=== PATIENT | male | born 1955 | race Two or more races ===

== ENCOUNTER 2016-12-04 08:44 | Outpatient (CLI) | payer BC, OTHER ==
[~2016-12-04 08:44] MED LIST: AMLO10TA2 PO; LOSA1TAB35 PO; OMEP20TA68 PO; TAMS0.4C34 PO
[2016-12-04 09:18] LABS: BASOPHILS % (AUTO) 0.5 % (0.0-2.0); DIFF TOTAL % 100 %; EOSINOPHILS # (AUTO) 0.1 /CMM (0.0-0.7); EOSINOPHILS % (AUTO) 1.2 % (0.0-6.0); HEMATOCRIT 45 % (39-51); HEMOGLOBIN 14.9 g/dL (13.5-17.5); LYMPHOCYTES # (AUTO) 2.2 /CMM (0.8-4.8); LYMPHOCYTES % (AUTO) 30.1 % (20.0-44.0); MEAN CORPUSCULAR HEMOGLOBIN 28 PG (26.0-33.0); MEAN CORPUSCULAR HGB CONC 33 g/dl (31.0-36.0); MEAN CORPUSCULAR VOLUME 86 fL (80-96); MONOCYTES # (AUTO) 0.6 /CMM (0.1-1.30); MONOCYTES % (AUTO) 7.6 % (2.0-12.0); NEUTROPHILS # (AUTO) 4.5 /CMM (1.8-8.9); NEUTROPHILS % (AUTO) 60.6 % (43.0-81.0); PLATELET COUNT (AUTO) 243 /CMM (150-450); RED BLOOD CELL COUNT(AUTO) 5.25 MIL/uL (4.5-6.0); WHITE BLOOD COUNT (AUTO) 7.4 K/uL (4.3-11.0)
[2016-12-04 09:34] LABS: ALBUMIN 3.8 g/dL (3.4-5.0); BILIRUBIN,TOTAL 0.7 mg/dL (0.2-1.0); CALCIUM, SERUM 8.7 mg/dL (8.5-10.1); POTASSIUM 3.9 mmol/L (3.5-5.1); TOTAL PROTEIN, SERUM 7.4 g/dL (6.4-8.2)
[2016-12-04 09:36] LABS: URIC ACID 5.1 mg/dL (2.6-7.2)
[2016-12-04 10:14] LABS: ERYTHROCYTE SEDIMENTATION RATE 4 MM/HR (0-20)
== END 2016-12-04 23:59 | disposition home or self-care (01) ==
LOC: LAB 08:44
PROVIDERS: ATTEND Family Medicine
DX: I10 Essential (primary) hypertension (principal); E55.9 Vitamin D deficiency, unspecified; M24.832 Other specific joint derangements of left wrist, not elsewhere classified
CPT/HCPCS: 36415; 73130-TC; 80053-TC; 80061-TC; 82306; 84550-TC; 85025-TC; 85652-TC; 86140-TC

== ENCOUNTER 2017-05-14 08:04 | Outpatient (CLI) | payer BC, OTHER ==
[2017-05-14 09:27] LABS: BASOPHILS % (AUTO) 0.3 % (0.0-2.0); EOSINOPHILS # (AUTO) 0.1 /CMM (0.0-0.7); EOSINOPHILS % (AUTO) 1.2 % (0.0-6.0); HEMATOCRIT 45 % (39-51); HEMOGLOBIN 15.1 g/dL (13.5-17.5); LYMPHOCYTES # (AUTO) 2.4 /CMM (0.8-4.8); MEAN CORPUSCULAR HEMOGLOBIN 29 PG (26.0-33.0); MEAN CORPUSCULAR HGB CONC 34 g/dl (31.0-36.0); MEAN CORPUSCULAR VOLUME 86 fL (80-96); MONOCYTES # (AUTO) 0.6 /CMM (0.1-1.30); MONOCYTES % (AUTO) 7.5 % (2.0-12.0); NEUTROPHILS # (AUTO) 5.4 /CMM (1.8-8.9); PLATELET COUNT (AUTO) 263 /CMM (150-450); RDW COEFFICIENT OF VARIATION 14.5 (11.5-15.0); RED BLOOD CELL COUNT(AUTO) 5.23 MIL/uL (4.5-6.0); WHITE BLOOD COUNT (AUTO) 8.5 K/uL (4.3-11.0)
[2017-05-14 09:59] LABS: ALBUMIN 3.7 g/dL (3.4-5.0); BILIRUBIN,TOTAL 0.7 mg/dL (0.2-1.0); CALCIUM, SERUM 8.6 mg/dL (8.5-10.1); CREATININE 0.9 mg/dL (0.6-1.3); POTASSIUM 3.7 mmol/L (3.5-5.1); TOTAL PROTEIN, SERUM 7.2 g/dL (6.4-8.2)
[2017-05-14 10:09] LABS: THYROID STIMULATING HORMONE 2.326 uIU/mL (0.358-3.74)
[2017-05-15 08:09] LABS: T3 TOTAL 108 ng/dL (71-180)
== END 2017-05-14 23:59 | disposition home or self-care (01) ==
LOC: LAB 08:04
PROVIDERS: ATTEND Family Medicine
DX: Z51.89 Encounter for other specified aftercare (principal); I10 Essential (primary) hypertension
CPT/HCPCS: 36415; 71020-TC; 80053-TC; 80061-TC; 83735-TC; 84439-TC; 84443-TC; 84480; 85025-TC; 86803

== ENCOUNTER 2017-10-01 08:03 | Outpatient (CLI) | payer BC ==
[2017-10-01 09:25] LABS: BASOPHILS # (AUTO) 0.1 /CMM (0.0-0.2); BASOPHILS % (AUTO) 0.9 % (0.0-2.0); EOSINOPHILS # (AUTO) 0.1 /CMM (0.0-0.7); EOSINOPHILS % (AUTO) 1.1 % (0.0-6.0); HEMATOCRIT 48 % (39-51); HEMOGLOBIN 15.9 g/dL (13.5-17.5); LYMPHOCYTES % (AUTO) 24.3 % (20.0-44.0); MEAN CORPUSCULAR HEMOGLOBIN 28 PG (26.0-33.0); MEAN CORPUSCULAR HGB CONC 33 g/dl (31.0-36.0); MEAN CORPUSCULAR VOLUME 85 fL (80-96); MONOCYTES # (AUTO) 0.6 /CMM (0.1-1.30); MONOCYTES % (AUTO) 7.8 % (2.0-12.0); NEUTROPHILS # (AUTO) 5.4 /CMM (1.8-8.9); NEUTROPHILS % (AUTO) 65.9 % (43.0-81.0); PLATELET COUNT (AUTO) 277 /CMM (150-450); RDW COEFFICIENT OF VARIATION 14.2 (11.5-15.0); RED BLOOD CELL COUNT(AUTO) 5.69 MIL/uL (4.5-6.0); WHITE BLOOD COUNT (AUTO) 8.1 K/uL (4.3-11.0)
[2017-10-01 10:09] LABS: ALBUMIN 3.7 g/dL (3.4-5.0); BILIRUBIN,TOTAL 0.8 mg/dL (0.2-1.0); CREATININE 1.1 mg/dL (0.6-1.3); TOTAL PROTEIN, SERUM 7.4 g/dL (6.4-8.2)
[2017-10-01 10:13] LABS: FREE T4 (FREE THYROXINE) 0.92 ng/dL (0.76-1.46); PROSTATE SPECIFIC ANTIGEN SCR 4.86 ng/mL (0.00-4.00); THYROID STIMULATING HORMONE 2.418 uIU/mL (0.358-3.74)
== END 2017-10-01 23:59 | disposition home or self-care (01) ==
LOC: LAB 08:03
PROVIDERS: ATTEND Family Medicine
DX: R91.1 Solitary pulmonary nodule (principal); I10 Essential (primary) hypertension; N40.0 Benign prostatic hyperplasia without lower urinary tract symptoms
CPT/HCPCS: 36415; 71020-TC; 80053-TC; 80061-TC; 84153-TC; 84439-TC; 84443-TC; 85025-TC

== ENCOUNTER 2017-10-15 08:36 | Outpatient (CLI) | payer BC | END 2017-10-15 23:59 | disposition home or self-care (01) | LOC: CT 08:36 | PROVIDERS: ATTEND Family Medicine | DX: R91.1 Solitary pulmonary nodule (principal); Z87.891 Personal history of nicotine dependence | CPT/HCPCS: 71250-TC ==

== ENCOUNTER 2018-02-04 08:47 | Outpatient (CLI) | payer BC ==
[~2018-02-04 08:47] MED LIST changes: -AMLO10TA2 PO; +AMLO10TA6 PO; -LOSA1TAB35 PO; +LOSA1TAB42 PO; +OMEP20TA5 PO; -OMEP20TA68 PO
[2018-02-04 09:54] LABS: BASOPHILS % (AUTO) 0.5 % (0.0-2.0); EOSINOPHILS % (AUTO) 1.4 % (0.0-6.0); HEMATOCRIT 43 % (39-51); HEMOGLOBIN 14.6 g/dL (13.5-17.5); LYMPHOCYTES # (AUTO) 2.1 /CMM (0.8-4.8); LYMPHOCYTES % (AUTO) 27.8 % (20.0-44.0); MEAN CORPUSCULAR HGB CONC 34 g/dl (31.0-36.0); MEAN CORPUSCULAR VOLUME 87 fL (80-96); MONOCYTES # (AUTO) 0.6 /CMM (0.1-1.30); NEUTROPHILS # (AUTO) 4.7 /CMM (1.8-8.9); NEUTROPHILS % (AUTO) 62.3 % (43.0-81.0); PLATELET COUNT (AUTO) 258 /CMM (150-450); RDW COEFFICIENT OF VARIATION 14.6 (11.5-15.0); WHITE BLOOD COUNT (AUTO) 7.6 K/uL (4.3-11.0)
[2018-02-04 10:14] LABS: ALBUMIN 3.7 g/dL (3.4-5.0); BILIRUBIN,TOTAL 0.8 mg/dL (0.2-1.0); CALCIUM, SERUM 8.7 mg/dL (8.5-10.1); CREATININE 0.9 mg/dL (0.6-1.3); POTASSIUM 4.2 mmol/L (3.5-5.1); TOTAL PROTEIN, SERUM 7.5 g/dL (6.4-8.2)
[2018-02-04 10:17] LABS: APPEARANCE,URINE CLEAR (CLEAR); BILIRUBIN,URINE NEGATIVE (NEGATIVE); BLOOD, URINE NEGATIVE Ery/uL (NEGATIVE); COLOR,URINE YELLOW (YELLOW); KETONES,URINE NEGATIVE (NEGATIVE); LEUKOCYTE ESTERASE ,URINE NEGATIVE (NEGATIVE); NITRITE, URINE NEGATIVE (NEGATIVE); PROTEIN,URINE NEGATIVE (NEGATIVE); UGLUCOSE NEGATIVE (NEGATIVE); UROBILINOGEN,URINE 0.2 EU/dL (0.2)
[2018-02-04 10:23] LABS: FREE PSA 0.28 ng/mL (0.00-45); PROSTATE SPECIFIC ANTIGEN SCR 2.38 ng/mL (0.00-4.00); THYROID STIMULATING HORMONE 2.339 uIU/mL (0.358-3.74)
== END 2018-02-04 23:59 | disposition home or self-care (01) ==
LOC: LAB 08:47
PROVIDERS: ATTEND Family Medicine
DX: R91.8 Other nonspecific abnormal finding of lung field (principal); E55.9 Vitamin D deficiency, unspecified; N40.1 Benign prostatic hyperplasia with lower urinary tract symptoms; I70.0 Atherosclerosis of aorta; M47.894 Other spondylosis, thoracic region
CPT/HCPCS: 36415; 71250-TC; 80053-TC; 80061-TC; 81000-TC; 82306; 84153-TC; 84154-TC; 84403; 84439-TC; 84443-TC; 85025-TC

== ENCOUNTER 2018-02-11 08:24 | Outpatient (CLI) | payer BC | END 2018-02-11 23:59 | disposition home or self-care (01) | LOC: US 08:24 | PROVIDERS: ATTEND Family Medicine | DX: K76.89 Other specified diseases of liver (principal) | CPT/HCPCS: 76700-TC ==

== ENCOUNTER 2018-07-15 08:13 | Outpatient (CLI) | payer BC ==
[~2018-07-15 08:13] MED LIST changes: +AMLO10TA2 PO; -AMLO10TA6 PO
[2018-07-15 10:51] LABS: BASOPHILS % (AUTO) 0.5 % (0.0-2.0); EOSINOPHILS % (AUTO) 1.4 % (0.0-6.0); HEMATOCRIT 46 % (39-51); HEMOGLOBIN 14.8 g/dL (13.5-17.5); LYMPHOCYTES # (AUTO) 1.7 /CMM (0.8-4.8); LYMPHOCYTES % (AUTO) 23.2 % (20.0-44.0); MEAN CORPUSCULAR HEMOGLOBIN 28 PG (26.0-33.0); MEAN CORPUSCULAR HGB CONC 33 g/dl (31.0-36.0); MEAN CORPUSCULAR VOLUME 87 fL (80-96); MONOCYTES # (AUTO) 0.5 /CMM (0.1-1.30); MONOCYTES % (AUTO) 6.9 % (2.0-12.0); PLATELET COUNT (AUTO) 275 /CMM (150-450); RDW COEFFICIENT OF VARIATION 13.1 (11.5-15.0); RED BLOOD CELL COUNT(AUTO) 5.22 MIL/uL (4.5-6.0); WHITE BLOOD COUNT (AUTO) 7.3 K/uL (4.3-11.0)
[2018-07-15 11:25] LABS: FREE T4 (FREE THYROXINE) 0.93 ng/dL (0.76-1.46); THYROID STIMULATING HORMONE 1.559 uIU/mL (0.358-3.74)
[2018-07-15 11:56] LABS: ALBUMIN 3.8 g/dL (3.4-5.0); BILIRUBIN,TOTAL 0.6 mg/dL (0.2-1.0); CALCIUM, SERUM 8.8 mg/dL (8.5-10.1); POTASSIUM 3.9 mmol/L (3.5-5.1); TOTAL PROTEIN, SERUM 7.2 g/dL (6.4-8.2)
== END 2018-07-15 23:59 | disposition home or self-care (01) ==
LOC: LAB 08:13
PROVIDERS: ATTEND Family Medicine
DX: I10 Essential (primary) hypertension (principal); E55.9 Vitamin D deficiency, unspecified
CPT/HCPCS: 36415; 80053-TC; 80061-TC; 82652; 84439-TC; 84443-TC; 85025-TC

== ENCOUNTER 2018-08-12 10:05 | Outpatient (CLI) | payer BC ==
[~2018-08-12 10:05] MED LIST changes: -AMLO10TA2 PO; +AMLO10TA6 PO
[2018-08-12] MEDS ORDERED: GADODIAMIDE 5 MMOL/10 ML VIAL IJ ONE (14:35)
[2018-08-12] MEDS ORDERED: GADODIAMIDE 2.5 MMOL/5 ML VIAL IJ ONE (14:35)
== END 2018-08-12 23:59 | disposition home or self-care (01) ==
LOC: MRI 10:05
PROVIDERS: ATTEND Family Medicine
DX: M47.892 Other spondylosis, cervical region (principal); M48.02 Spinal stenosis, cervical region; R90.82 White matter disease, unspecified
CPT/HCPCS: 70553-TC; 72141-TC

== ENCOUNTER 2018-12-02 08:41 | Outpatient (CLI) | payer BC ==
[~2018-12-02 08:41] MED LIST changes: -AMLO10TA6 PO; +AMLO10TA7 PO
== END 2018-12-02 23:59 | disposition home or self-care (01) ==
LOC: LAB 08:41
PROVIDERS: ATTEND Family Medicine
DX: N39.0 Urinary tract infection, site not specified (principal)
CPT/HCPCS: 87086-TC; 87186-TC

== ENCOUNTER 2018-12-02 15:42 | Emergency (ER) | payer BC ==
[~2018-12-02] VITALS: Ht 167.6 cm; Wt 77.6 kg
--- NOTE | 2018-12-02 15:45 | NUR ---
PT BROUGHT SELF IN FROM DR DRIVER OFFICE S/T INCREASED WBC AND PAIN WITH URINATION. AFEBRILE. VSS
--- NOTE | 2018-12-02 15:54 | NUR ---
URINE SAMPLE COLLECTED
[2018-12-02] MEDS ORDERED: IV NS 0.9% 1,000 ML BAG IV ONE (16:00)
[2018-12-02 16:12] LABS: BASOPHILS # (AUTO) 0.1 /CMM (0.0-0.2); BASOPHILS % (AUTO) 0.6 % (0.0-2.0); EOSINOPHILS % (AUTO) 0.2 % (0.0-6.0); HEMATOCRIT 41 % (39-51); HEMOGLOBIN 13.8 g/dL (13.5-17.5); LYMPHOCYTES # (AUTO) 2.1 /CMM (0.8-4.8); LYMPHOCYTES % (AUTO) 10.5 % (20.0-44.0); MEAN CORPUSCULAR HGB CONC 34 g/dl (31.0-36.0); MEAN CORPUSCULAR VOLUME 87 fL (80-96); MONOCYTES % (AUTO) 10.3 % (2.0-12.0); NEUTROPHILS # (AUTO) 15.5 /CMM (1.8-8.9); NEUTROPHILS % (AUTO) 78.4 % (43.0-81.0); PLATELET COUNT (AUTO) 239 /CMM (150-450); WHITE BLOOD COUNT (AUTO) 19.8 K/uL (4.3-11.0)
[2018-12-02 16:14] LABS: APPEARANCE,URINE Clear (CLEAR); BILIRUBIN,URINE Negative (NEGATIVE); BLOOD, URINE Trace-intact Ery/uL (NEGATIVE); COLOR,URINE Yellow (YELLOW); KETONES,URINE Negative (NEGATIVE); LEUKOCYTE ESTERASE ,URINE Small (NEGATIVE); NITRITE, URINE Positive (NEGATIVE); PROTEIN,URINE Trace mg/dl (NEGATIVE); UGLUCOSE Negative (NEGATIVE)
[2018-12-02 16:21] LABS: BACTERIA,URINE Many /HPF (None Seen); SQUAMOUS EPITHELIAL CELL,UR Few /HPF (None Seen); WBC,URINE 81-100 /HPF (0-3)
[2018-12-02 16:22] LABS: MUCUS,URINE Few /LPF (None Seen); URINE AMORPHOUS URATE Few /HPF (None Seen)
[2018-12-02 16:23] LABS: CALCIUM, SERUM 8.5 mg/dL (8.5-10.1); CREATININE 1.1 mg/dL (0.6-1.3); POTASSIUM 3.7 mmol/L (3.5-5.1)
[2018-12-02] MEDS ORDERED: CEFTRIAXONE 1GM BAG (ER ONLY) 1 GM/50 ML PIGGYBACK IV ONE (16:30)
--- NOTE | 2018-12-02 16:31 | NUR ---
ELSIE DRIVER [phone]
[2018-12-02] MEDS ORDERED: CEFTRIAXONE 1GM BAG (ER ONLY) 50 ML IV ONE (16:52)
--- NOTE | 2018-12-02 17:47 | NUR ---
Patient discharged to home in stable condition. Written and verbal after care instructions given. Patient verbalizes understanding of instruction. RX PROVIDED AND EDUATED. TRANSLATION WITH LATVIAN
[2018-12-02 17:49] VITALS: BP 134/74
== END 2018-12-02 17:50 | disposition home or self-care (01) ==
LOC: ER 15:46
DX: N39.0 Urinary tract infection, site not specified (principal); N12 Tubulo-interstitial nephritis, not specified as acute or chronic; I10 Essential (primary) hypertension; Z98.890 Other specified postprocedural states; Z79.899 Other long term (current) drug therapy
CPT/HCPCS: 36415; 80048-TC; 81000-TC; 85025-TC; 87086-TC; 87186-TC; J0696; J7030

== ENCOUNTER 2018-12-16 10:29 | Outpatient (CLI) | payer BC ==
[2018-12-16] MEDS ORDERED: CT SWABBABLE VALVE TRANS SET 1 EA INFUS.SET MC ONE (11:18)
[2018-12-16] MEDS ORDERED: IV NS 0.9% 250 ML IV ONE (11:18)
[2018-12-16] MEDS ORDERED: IOHEXOL-300 100 ML VIAL IV ONE (11:18)
== END 2018-12-16 23:59 | disposition home or self-care (01) ==
LOC: CT 10:29
PROVIDERS: ATTEND Family Medicine
DX: N10 Acute pyelonephritis (principal); K76.89 Other specified diseases of liver; I70.0 Atherosclerosis of aorta; N40.0 Benign prostatic hyperplasia without lower urinary tract symptoms
CPT/HCPCS: 74178; 87086; J7050; Q9967; 87186-TC

== ENCOUNTER 2019-03-10 08:59 | Outpatient (CLI) | payer BC | END 2019-03-10 23:59 | disposition home or self-care (01) | LOC: MRI 08:59 | PROVIDERS: ATTEND Family Medicine | DX: M75.101 Unspecified rotator cuff tear or rupture of right shoulder, not specified as traumatic (principal); M62.111 Other rupture of muscle (nontraumatic), right shoulder; M19.011 Primary osteoarthritis, right shoulder | CPT/HCPCS: 73221-TC ==

== ENCOUNTER 2019-05-19 08:21 | Outpatient (CLI) | payer BC ==
[2019-06-03] MEDS ORDERED: RIVA10TA PO (14:39)
[2019-06-03] MEDS ORDERED: METO50TA7 PO (14:39)
== END 2019-05-19 23:59 | disposition home or self-care (01) ==
LOC: RAD 08:21
PROVIDERS: ATTEND Family Medicine
DX: M17.0 Bilateral primary osteoarthritis of knee (principal); M25.761 Osteophyte, right knee; M25.461 Effusion, right knee
CPT/HCPCS: 73562

== ENCOUNTER 2019-06-02 08:38 | Inpatient (IN) | payer BC ==
[~2019-06-02] VITALS: Ht 172.7 cm; Wt 98.4 kg
--- NOTE | 2019-06-02 08:50 | NUR ---
DR LUX AT BEDSIDE FOR EVAL.
--- NOTE | 2019-06-02 08:56 | NUR ---
SENT BY PMD FOR NEW ONSET OF A-FIB, NO SYMPTOMS. PATIENT AOx4, TO ER BED 10, HOOKED TO MONITOR, CHANGED TO GOWN, PROVIDED W WARM BLANKET, AWAITING MD HANSEN.
[2019-06-02 09:09] LABS: BASOPHILS # (AUTO) 0.1 /CMM (0.0-0.2); BASOPHILS % (AUTO) 0.8 % (0.0-2.0); EOSINOPHILS % (AUTO) 1.1 % (0.0-6.0); HEMATOCRIT 44 % (39-51); HEMOGLOBIN 15.2 g/dL (13.5-17.5); LYMPHOCYTES # (AUTO) 1.9 /CMM (0.8-4.8); LYMPHOCYTES % (AUTO) 26.5 % (20.0-44.0); MEAN CORPUSCULAR HGB CONC 34 g/dl (31.0-36.0); MEAN CORPUSCULAR VOLUME 86 fL (80-96); MONOCYTES # (AUTO) 0.6 /CMM (0.1-1.30); MONOCYTES % (AUTO) 8.1 % (2.0-12.0); NEUTROPHILS # (AUTO) 4.6 /CMM (1.8-8.9); NEUTROPHILS % (AUTO) 63.5 % (43.0-81.0); PLATELET COUNT (AUTO) 233 /CMM (150-450); RED BLOOD CELL COUNT(AUTO) 5.17 MIL/uL (4.5-6.0); WHITE BLOOD COUNT (AUTO) 7.3 K/uL (4.3-11.0)
[2019-06-02 09:17] LABS: CALCIUM, SERUM 8.5 mg/dL (8.5-10.1); CARBON DIOXIDE 26 mmol/L (21-32); CHLORIDE 105 mmol/L (98-107); CREATININE 1.1 mg/dL (0.6-1.3); GLUCOSE 119 mg/dL (74-106); POTASSIUM 3.8 mmol/L (3.5-5.1); SODIUM SERUM 141 mmol/L (136-145); UREA NITROGEN, BLOOD 14 mg/dL (7-18)
[2019-06-02 09:29] LABS: B-TYPE NATRIURETIC PEPTIDE 280 PG/ML (0-125)
[2019-06-02] MEDS ORDERED: TERA10CA4 PO (09:36)
[2019-06-02] MEDS ORDERED: ALBU8.5H8 PO (09:36)
[2019-06-02] MEDS ORDERED: FINA5TAB11 PO (09:36)
[2019-06-02] MEDS ORDERED: HEPARIN SODIUM, PORCINE 5000 UNITS/1 ML VIAL ONE (09:47)
[2019-06-02] MEDS ORDERED: ASPIRIN 325 MG TABLET ONE (09:48)
[2019-06-02] MEDS ORDERED: ASPIRIN 325 MG TABLET PO ONE (10:00)
[2019-06-02] MEDS ORDERED: HEPARIN SODIUM, PORCINE 5000 UNITS/1 ML VIAL IV ONE (10:00)
--- NOTE | 2019-06-02 10:28 | NUR ---
CALLED FOR TELE BED.
--- NOTE | 2019-06-02 11:31 | NUR ---
REPORT GIVEN TO ROBERTO CARDENAS OF TELE UNIT
[2019-06-02 12:00] VITALS: BP 145/86
--- NOTE | 2019-06-02 12:00 | NUR ---
RECEIVED PATIENT FROM ER VIA WHEELCHAIR. SENT BY PMD FOR ABN EKG. DIAGNOSIS OF [place] AFIB. PATIENT IS A/OX4, ABLE TO MAKE NEEDS KNOWN, AMBULATORY. PATIENT IS ASYMPTOMATIC. NOT IN ANY FORM OF DISTRESS, NO SOB. DENIED PAIN OR DISCOMFORT AT THIS TIME. IV ACCESS LEFT HAND GAUGE 18, INTACT AND PATENT. ON TELE, SR WITH PACs HR 88. KEPT PATIENT SAFE AND COMFORTABLE. SAFETY PRECAUTIONS OBSERVED. BED IN LOW/LOCKED POSITION, SIDERAILS UPX2, CALL LIGHT IN REACH. WILL CONTINUE TO MONITOR ACCORDINGLY.
--- NOTE | 2019-06-02 12:10 | NUR ---
ALL BELONGINGS CHECKED AND NOTED IT ON THE BELONGINGS FORM. PER PATIENT, NO OPEN WOUNDS, REFUSED BODY CHECK. PATIENT AMBULATORY. AT BEDSIDE.
[2019-06-02 12:15] VITALS: BP 145/86
[2019-06-02] MEDS: HEPARIN INFUSION/D5W 500 ML IV PRN ×3 (12:20→12:29)
--- NOTE | 2019-06-02 12:20 | NUR ---
RONALD NOTES HEPARIN DRIP: PATIENT CALCULATED AT 98KG. 1600 UNITS/HR DIVIDED BY 50 UNITS/ML/HR = 32 UNITS/ML/HR. BOLUS OF 5,000 UNITS HEPARIN GIVEN IN ER. VERIFIED WITH JULIENNE FROM PHARMACY. CALCULATION IS OK PER JULIENNE. Addendum: 06/02/19 at 1835 by ROBERTO FONSECA 32 ML/HR
[2019-06-02] MEDS ORDERED: ACETAMINOPHEN 325 MG TABLET PO PRN (13:00)
[2019-06-02] MEDS ORDERED: ZOLPIDEM TARTRATE 5 MG TABLET PO PRN (13:00)
[2019-06-02] MEDS ORDERED: HYDROCODONE/APAP 5/325MG 1 EACH TABLET PO PRN (13:00)
[2019-06-02] MEDS ORDERED: ONDANSETRON HCL/PF 4 MG/2 ML VIAL IVP PRN (13:00)
[2019-06-02] MEDS ORDERED: Z GUARD REMEDY 2 OZ OINT TP PRN (13:00)
[2019-06-02] MEDS ORDERED: MAGNESIUM HYDROXIDE 30 ML UDC PO PRN (13:00)
[2019-06-02] MEDS ORDERED: MAG HYDROX/AL HYDROX/SIMETH 30 ML UDC PO PRN (13:00)
[2019-06-02 16:00] VITALS: BP 146/87
[2019-06-02] MEDS ORDERED: ALBUTEROL FS 2.5 MG/3 ML VIAL.NEB NEB PRN (17:00)
--- NOTE | 2019-06-02 17:45 | NUR ---
CALLED LAB FOR STAT BLOOD DRAW FOR PTT
--- NOTE | 2019-06-02 18:00 | NUR ---
RN NOTES STILL AWAITING FOR LAB DRAW. CALLED LAB AGAIN TO F/U. THEY SAID PHLEBTMISTS WAS INFORMED.
--- NOTE | 2019-06-02 18:29 | NUR ---
RN NOTES STILL AWAITING FOR BLOOD DRAW. CALLED LAB AGAIN. THEY SAID OK THEY WILL CALL THE PHLEBOTOMISTS.
--- NOTE | 2019-06-02 18:31 | NUR ---
RONALD NOTES NO RESULT ON COAGULATION STUDIES YET. Addendum: 06/02/19 at 183 by ROBERTO FONSECA AWAITING FOR PTT FOR 1819
--- NOTE | 2019-06-02 19:10 | NUR ---
RN CLOSING NOTES PATIENT IN STABLE CONDITION. ALL NEEDS ATTENDED AND PROVIDED. ALL DUE MEDICATIONS GIVEN ORDERED. ASSISTED WITH ADLS. HEPARIN DRIP INFUSING 32ML/HR. PTT STILL PENDING. KEPT PATIENT SAFE AND COMFORTABLE. BED IN LOW/LOCKED POSITION. CALL LIGHT IN REACH. ENDORSED TO NIGHT RN FOR PAULY.
--- NOTE | 2019-06-02 19:10 | NUR ---
TELE/RN OPENING NOTES PT RECEIVED AWAKE WITH FAMILY AT BEDSIDE. PT A/OX3. ON ROOM AIR, BREATHING EVEN AND UNLABORED. DENIES SOB AND PAIN AT THIS TIME. HOB ELEVATED. ON TELE MONITOR SHOWING SR 67. IV TO LEFT HAND RUNNING HEPARIN DRIP AT 1600 UNITS/HR (32ML/HR). NO SIGNS OF BLEEDING NOTED. AWAITING PTT RESULT. NO NEEDS EXPRESSED AT THIS TIME. BED IN LOW/LOCKED POSITION WITH CALL LIGHT IN REACH. BILAT. UPPER SIDE RAILS IN PLACE. WILL CONTINUE TO MONITOR
--- NOTE | 2019-06-02 19:30 | NUR ---
TELE/RN NOTES LAB CALLED WITH PTT RESULT 88.6 READBACK FOR VERIFICATION. WILL TITRATE HEPARIN DRIP PER PROTOCOL
[2019-06-02 20:00] VITALS: BP 140/82
--- NOTE | 2019-06-02 20:20 | NUR ---
TELE/RN NOTES DECREASED HEPARIN DRIP BY 200 UNITS/HR PER PROTOCOL. HEPARIN DRIP RUNNING AT 1400 UNITS/HR (28ML/HR). REVIEWED WITH RN NIGHT, ADJUSTMENT WRITTEN ON [facility] ORDER SHEET AND FAXED TO PHARMACY. PT AND FAMILY UPDATED
[2019-06-02] MEDS ORDERED: TERAZOSIN HCL 5 MG CAPSULE PO SCH (22:00)
[2019-06-03] VITALS: BP 120/70
--- NOTE | 2019-06-03 02:47 | NUR ---
TELE/RN NOTES PTT= 92.3 HEPARIN DRIP PUT ON HOLD FOR 1 HOUR PER PROTOCOL. THEN WILL DECREASE DRIP BY 3UNIT/KG/HR (250 UNITS/HR). WILL ORDER FOR ANOTHER PTT IN 6 HOURS.
--- NOTE | 2019-06-03 03:48 | NUR ---
TELE/RN NOTES HEPARIN DRIP RESUMED WITH A NEW DRIP RATE OF 1,150 UNITS/HR (23ML/HR) PTT ORDERED FOR 0845
[2019-06-03 04:00] VITALS: BP 136/79
[2019-06-03 06:39] LABS: BASOPHILS # (AUTO) 0.1 /CMM (0.0-0.2); BASOPHILS % (AUTO) 0.7 % (0.0-2.0); EOSINOPHILS % (AUTO) 2.3 % (0.0-6.0); HEMATOCRIT 41 % (39-51); HEMOGLOBIN 14.1 g/dL (13.5-17.5); LYMPHOCYTES # (AUTO) 2.1 /CMM (0.8-4.8); LYMPHOCYTES % (AUTO) 29.2 % (20.0-44.0); MEAN CORPUSCULAR HGB CONC 34 g/dl (31.0-36.0); MEAN CORPUSCULAR VOLUME 86 fL (80-96); MONOCYTES # (AUTO) 0.6 /CMM (0.1-1.30); MONOCYTES % (AUTO) 8.7 % (2.0-12.0); NEUTROPHILS # (AUTO) 4.2 /CMM (1.8-8.9); NEUTROPHILS % (AUTO) 59.1 % (43.0-81.0); PLATELET COUNT (AUTO) 220 /CMM (150-450); RED BLOOD CELL COUNT(AUTO) 4.79 MIL/uL (4.5-6.0)
[2019-06-03 07:07] LABS: ALBUMIN 3.3 g/dL (3.4-5.0); CALCIUM, SERUM 8.4 mg/dL (8.5-10.1); CREATININE 1.1 mg/dL (0.6-1.3); MAGNESIUM 1.9 mg/dL (1.8-2.4); PHOSPHORUS 4.1 mg/dL (2.5-4.9); POTASSIUM 3.9 mmol/L (3.5-5.1); TOTAL PROTEIN, SERUM 6.6 g/dL (6.4-8.2)
[2019-06-03] MEDS: HEPARIN INFUSION/D5W 500 ML IV PRN (07:15)
[2019-06-03] MEDS ORDERED: PANTOPRAZOLE 40 MG TABLET.DR PO SCH (07:30)
--- NOTE | 2019-06-03 07:43 | NUR ---
TELE/RN CLOSING NOTES PT AWAKE, AT BEDSIDE. A/OX3. REMAINS ON ROOM AIR, BREATHING EVEN AND UNLABORED. DENIES SOB AND PAIN AT THIS TIME. LEFT HAND PIV PATENT AND INTACT RUNNING HEPARIN DRIP AT 1,150 UNITS/HR (23ML/HR). NEXT PTT DUE AT 0845. NO BLEEDING NOTED. ON TELE MONITOR SHOWING SR 60'S. NO SIGNIFICANT CHANGES OVERNIGHT. ALL NEEDS MET AND ANTICIPATED. BED IN LOW/LOCKED POSITION WITH CALL LIGHT IN REACH. HOB ELEVATED. BILAT. UPPER SIDE RAILS IN PLACE. ENDORSED TO DAY SHIFT RN PAULY.
[2019-06-03 08:00] VITALS: BP 137/79
--- NOTE | 2019-06-03 08:00 | NUR ---
Tele/RN - Assessment Patient awake, A/O x 4, no complaints overnight, no further episodes of A. Fib, currently on NSR, no c/o palpitations, denies chest pain at this time, no c/o shortness of breath, afebrile, stable on room air, no active bleeding noted. Heparin drip infusing at (1,150 units/hr) 23 ml/hr on the left hand with no signs of infiltration. Labs reviewed with no critical results, PTT timed at 08:45 per protocol. Pending cardiac consult. Skin is intact, independent with bed mobility, ambulatory with steady gait. Patient and educated on plan of care. Will continue with current medical management.
[2019-06-03] MEDS ORDERED: FINASTERIDE (5 MG) 5 MG TABLET PO SCH (09:00)
[2019-06-03] MEDS ORDERED: LOSARTAN POTASSIUM 50 MG TABLET PO SCH (09:00)
[2019-06-03] MEDS ORDERED: AMLODIPINE BESYLATE 10 MG TABLET PO SCH (09:00)
[2019-06-03] MEDS ORDERED: HYDROCHLOROTHIAZIDE 25 MG TABLET PO SCH (09:00)
--- NOTE | 2019-06-03 09:20 | NUR ---
Tele/RN - Cardio consult Seen and examined by Dr. Dee with order to d/c heparin drip and telemetry monitoring, cleared to discharge home today from cardiac standpoint and see him in the office in 1 week.
[2019-06-03] MEDS ORDERED: METOPROLOL SUCCINATE 50 MG TAB.SR.24H PO SCH (09:30)
[2019-06-03 09:37] VITALS: BP 137/79
[2019-06-03 09:59] LABS: THYROID STIMULATING HORMONE 2.89 uIU/mL (0.358-3.74)
[2019-06-03] MEDS ORDERED: RIVAROXABAN 10 MG TABLET PO SCH (10:00)
--- NOTE | 2019-06-03 10:30 | NUR ---
MS/RN - Notes Patient denies chest pain, no c/o palpitations, stable on room air. Echo done, preliminary result showed EF 70%, normal wall motion, EKG result NSR ventricular rate of 67.
[2019-06-03] MEDS ORDERED: MYRBETRIQ PO (13:54)
[2019-06-03] MEDS ORDERED: RIVA10TA PO (14:39)
[2019-06-03] MEDS ORDERED: METO50TA7 PO (14:39)
--- NOTE | 2019-06-03 16:01 | NUR ---
MS/RN - Discharge Patient is alert and oriented throughout the shift, discharged home in stable condition, remain afebrile, denies chest pain, not in any form of distress, ambulatory with steady gait. Reviewed discharge instructions with patient and both verbalized full understanding of all teachings including new medications and follow-up care with PCP and Dr. Dee in 1 week. Outpatient EP evaluation for possible consideration of ablation. Continue home medications. Prescriptions written for Metoprolol Succinate 100mg PO QD and Xarelto 20mg PO QD; take as directed. Seek immediate medical attention for worsening symptoms, chest pain, shortness of breath, palpitations, abdominal pain distention, intractable nausea and vomiting, diarrhea, hematochezia, melena, weakness, loss of consciousness, neurological deficit, or any other emergent concerns. All belongings with patient and he deny any missing items. Patient refused photos to be taken of skin, no breakdown. Saline lock removed on the left hand with catheter tip intact, no redness, no swelling noted at the site. Discharge paperwork signed and copies were given per protocol. Accompanied to the lobby via wheelchair and transported by private car by .
== END 2019-06-03 16:00 | disposition home or self-care (01) | DRG 310 ==
LOC: ER 08:40 → TELE 11:44 → MED 06-03 09:48
PROVIDERS: ADMIT Hospitalist; ATTEND Hospitalist
DX: I48.91 Unspecified atrial fibrillation (principal); E66.9 Obesity, unspecified; I10 Essential (primary) hypertension; K21.9 Gastro-esophageal reflux disease without esophagitis; Z68.33 Body mass index [BMI] 33.0-33.9, adult; N40.0 Benign prostatic hyperplasia without lower urinary tract symptoms; Z79.899 Other long term (current) drug therapy; Z79.51 Long term (current) use of inhaled steroids
CPT/HCPCS: 36415; 71045-TC; 80048-TC; 80053-TC; 80061-TC; 83735-TC; 83880; 84100-TC; 84439-TC; 84443-TC; 84484-TC; 85025-TC; 85730-TC; 87081-TC; 93307-TC; G0378; J1644

== ENCOUNTER 2019-06-24 06:23 | Day surgery (SDC) | payer BC ==
[~2019-06-24] VITALS: Ht 167.6 cm; Wt 95.8 kg
[~2019-06-24 06:23] MED LIST changes: +ALBU8.5H8 PO; +FINA5TAB11 PO; +METO50TA7 PO; +RIVA10TA PO; -TAMS0.4C34 PO; +TERA10CA4 PO
--- NOTE | 2019-06-24 06:26 | NUR ---
MS/RN NOTES RECEIVED PT. FROM HOME FOR DAY SURGERY PROCEDURE TODAY: EXCISION OF CHEST MASS. PT. IS A&O X4, MONGOLIAN SPEAKING. ORIENTED PT. TO ROOM. INSERTED LEFT AC 20 GAUGE IV SALINE LOCK PRESENT, PATENT AND INTACT. PT. CONSENT SIGNED AND PLACED IN PT. CHART. PT. CHECKLIST COMPLETED AND PLACED IN PT. CHART. STAT LABS ORDERED. PT. PRESENT AT BEDSIDE. BED LOCKED AND IN LOWEST POSITION, SIDE RAILS UP X2, CALL LIGHT WITHIN REACH, PT. IN STABLE CONDITION WAITING TO BE PICKED UP FOR SURGERY.
[2019-06-24 06:30] VITALS: BP 137/78
[2019-06-24] MEDS ORDERED: ANESTHESIA TRAY IN PYXIS 1 EA TRAY MC ONE (07:20)
[2019-06-24] MEDS ORDERED: LIDOCAINE HCL/PF 1% 30 ML SDV ONE (07:31)
[2019-06-24] MEDS ORDERED: BUPIVACAINE 0.25% 75 MG/30 ML VIAL ONE (07:31)
[2019-06-24 07:32] LABS: BASOPHILS % (AUTO) 0.4 % (0.0-2.0); EOSINOPHILS % (AUTO) 1.9 % (0.0-6.0); HEMATOCRIT 44 % (39-51); HEMOGLOBIN 14.3 g/dL (13.5-17.5); LYMPHOCYTES # (AUTO) 1.8 /CMM (0.8-4.8); LYMPHOCYTES % (AUTO) 23.8 % (20.0-44.0); MEAN CORPUSCULAR HGB CONC 33 g/dl (31.0-36.0); MEAN CORPUSCULAR VOLUME 87 fL (80-96); MONOCYTES # (AUTO) 0.6 /CMM (0.1-1.30); MONOCYTES % (AUTO) 8.6 % (2.0-12.0); NEUTROPHILS # (AUTO) 4.9 /CMM (1.8-8.9); NEUTROPHILS % (AUTO) 65.3 % (43.0-81.0); PLATELET COUNT (AUTO) 257 /CMM (150-450); RED BLOOD CELL COUNT(AUTO) 5.01 MIL/uL (4.5-6.0); WHITE BLOOD COUNT (AUTO) 7.5 K/uL (4.3-11.0)
[2019-06-24 07:40] LABS: CALCIUM, SERUM 8.4 mg/dL (8.5-10.1); CREATININE 1.1 mg/dL (0.6-1.3); POTASSIUM 3.7 mmol/L (3.5-5.1)
--- NOTE | 2019-06-24 08:00 | NUR ---
rn patient in the or at this time, for removal of right chest mass
--- NOTE | 2019-06-24 09:00 | NUR ---
ms rn came back fron or, patient is awake,alert,oriented x4, v/s stable, wants to go home already. called dr. mancilla, ok to go home, no need to see a hospitalist.
--- NOTE | 2019-06-24 10:00 | NUR ---
ms internal security manager instructions given, to have a follow up w/ dr. mancilla in 2 weeks, went home accompanied by .
== END 2019-06-24 16:00 | disposition home or self-care (01) ==
LOC: DS 06:23 → UNDOADMIN 06:25 → MED 06:25 → UNDODISIN 09:20 → DS 16:00
PROVIDERS: ATTEND Surgery
DX: D17.1 Benign lipomatous neoplasm of skin and subcutaneous tissue of trunk (principal); I10 Essential (primary) hypertension; Z79.899 Other long term (current) drug therapy
CPT/HCPCS: 11406; 36415; 80048; 85025; 85610; 85730; 87081; 88304; A6209; J3490 ×2; G0378

== ENCOUNTER 2019-07-21 13:21 | Outpatient (CLI) | payer BC | END 2019-07-21 23:59 | disposition home or self-care (01) | LOC: MRI 13:21 | PROVIDERS: ATTEND Family Medicine | DX: S83.241A Other tear of medial meniscus, current injury, right knee, initial encounter (principal); M25.861 Other specified joint disorders, right knee; M16.11 Unilateral primary osteoarthritis, right hip; M76.01 Gluteal tendinitis, right hip; M51.37 Other intervertebral disc degeneration, lumbosacral region; K40.90 Unilateral inguinal hernia, without obstruction or gangrene, not specified as recurrent; I10 Essential (primary) hypertension; X58.XXXA Exposure to other specified factors, initial encounter; Y93.89 Activity, other specified; Y92.89 Other specified places as the place of occurrence of the external cause; Y99.8 Other external cause status | CPT/HCPCS: 73721-TC ==

== ENCOUNTER 2019-09-10 08:11 | Outpatient (CLI) | payer BC | END 2019-09-10 23:59 | disposition home or self-care (01) | LOC: RAD 08:11 | PROVIDERS: ATTEND Family Medicine | DX: Z01.818 Encounter for other preprocedural examination (principal) | CPT/HCPCS: 71046 ==

== ENCOUNTER 2019-11-12 08:34 | Outpatient (CLI) | payer BC | END 2019-11-12 23:59 | disposition home or self-care (01) | LOC: CT 08:34 | PROVIDERS: ATTEND Family Medicine | DX: J98.4 Other disorders of lung (principal); I25.10 Atherosclerotic heart disease of native coronary artery without angina pectoris; I70.0 Atherosclerosis of aorta; M47.819 Spondylosis without myelopathy or radiculopathy, site unspecified; Z87.891 Personal history of nicotine dependence | CPT/HCPCS: 71250-TC ==

== ENCOUNTER 2020-11-10 08:08 | Outpatient (CLI) | payer BC ==
[~2020-11-10 08:08] MED LIST changes: +AMLO-213 PO; -AMLO10TA7 PO
[2020-11-10 08:48] LABS: BASOPHILS # (AUTO) 0.1 /CMM (0.0-0.2); BASOPHILS % (AUTO) 0.7 % (0.0-2.0); EOSINOPHILS % (AUTO) 1.9 % (0.0-6.0); HEMATOCRIT 45 % (39-51); HEMOGLOBIN 14.9 g/dL (13.5-17.5); LYMPHOCYTES # (AUTO) 2.2 /CMM (0.8-4.8); LYMPHOCYTES % (AUTO) 29.2 % (20.0-44.0); MEAN CORPUSCULAR HGB CONC 33 g/dl (31.0-36.0); MEAN CORPUSCULAR VOLUME 88 fL (80-96); MONOCYTES # (AUTO) 0.6 /CMM (0.1-1.30); MONOCYTES % (AUTO) 7.5 % (2.0-12.0); NEUTROPHILS # (AUTO) 4.5 /CMM (1.8-8.9); NEUTROPHILS % (AUTO) 60.7 % (43.0-81.0); PLATELET COUNT (AUTO) 248 /CMM (150-450); RED BLOOD CELL COUNT(AUTO) 5.18 MIL/uL (4.5-6.0); WHITE BLOOD COUNT (AUTO) 7.4 K/uL (4.3-11.0)
[2020-11-10 09:15] LABS: CALCIUM, SERUM 8.4 mg/dL (8.5-10.1)
== END 2020-11-10 23:59 | disposition home or self-care (01) ==
LOC: LAB 08:08
PROVIDERS: ATTEND Family Medicine
DX: Z01.818 Encounter for other preprocedural examination (principal)
CPT/HCPCS: 36415; 80048-TC; 85025-TC

== ENCOUNTER 2020-12-23 11:56 | Outpatient (CLI) | payer BC ==
[2020-12-23 12:31] LABS: BASOPHILS # (AUTO) 0.1 /CMM (0.0-0.2); BASOPHILS % (AUTO) 0.7 % (0.0-2.0); EOSINOPHILS % (AUTO) 2.3 % (0.0-6.0); HEMATOCRIT 44 % (39-51); HEMOGLOBIN 14.6 g/dL (13.5-17.5); LYMPHOCYTES # (AUTO) 2.2 /CMM (0.8-4.8); LYMPHOCYTES % (AUTO) 25.9 % (20.0-44.0); MEAN CORPUSCULAR HGB CONC 33 g/dl (31.0-36.0); MEAN CORPUSCULAR VOLUME 87 fL (80-96); MONOCYTES # (AUTO) 0.8 /CMM (0.1-1.30); MONOCYTES % (AUTO) 9.9 % (2.0-12.0); NEUTROPHILS # (AUTO) 5.3 /CMM (1.8-8.9); NEUTROPHILS % (AUTO) 61.2 % (43.0-81.0); PLATELET COUNT (AUTO) 248 /CMM (150-450); RED BLOOD CELL COUNT(AUTO) 5.08 MIL/uL (4.5-6.0); WHITE BLOOD COUNT (AUTO) 8.6 K/uL (4.3-11.0)
[2020-12-23 12:34] LABS: CALCIUM, SERUM 8.8 mg/dL (8.5-10.1)
== END 2020-12-23 23:59 | disposition home or self-care (01) ==
LOC: LAB 11:56
PROVIDERS: ATTEND Family Medicine
DX: Z01.818 Encounter for other preprocedural examination (principal)
CPT/HCPCS: 36415; 80048-TC; 85025-TC

== ENCOUNTER 2021-01-04 09:07 | Outpatient (CLI) | payer BC ==
[2021-01-04 10:07] LABS: BASOPHILS # (AUTO) 0.1 /CMM (0.0-0.2); BASOPHILS % (AUTO) 0.6 % (0.0-2.0); EOSINOPHILS % (AUTO) 0.6 % (0.0-6.0); HEMATOCRIT 47 % (39-51); HEMOGLOBIN 16.1 g/dL (13.5-17.5); LYMPHOCYTES # (AUTO) 2.2 /CMM (0.8-4.8); LYMPHOCYTES % (AUTO) 23.7 % (20.0-44.0); MEAN CORPUSCULAR HGB CONC 34 g/dl (31.0-36.0); MEAN CORPUSCULAR VOLUME 85 fL (80-96); MONOCYTES # (AUTO) 0.6 /CMM (0.1-1.30); MONOCYTES % (AUTO) 6.8 % (2.0-12.0); NEUTROPHILS # (AUTO) 6.4 /CMM (1.8-8.9); NEUTROPHILS % (AUTO) 68.3 % (43.0-81.0); PLATELET COUNT (AUTO) 287 /CMM (150-450); RED BLOOD CELL COUNT(AUTO) 5.55 MIL/uL (4.5-6.0); WHITE BLOOD COUNT (AUTO) 9.4 K/uL (4.3-11.0)
[2021-01-04 10:47] LABS: BILIRUBIN,URINE NEGATIVE (NEGATIVE); COLOR,URINE YELLOW (YELLOW); LEUKOCYTE ESTERASE ,URINE NEGATIVE (NEGATIVE); NITRITE, URINE NEGATIVE (NEGATIVE); PROTEIN,URINE NEGATIVE (NEGATIVE); UGLUCOSE NEGATIVE (NEGATIVE); UROBILINOGEN,URINE 0.2 EU/dL (0.2)
[2021-01-04 11:14] LABS: PROSTATE SPECIFIC ANTIGEN SCR 1.35 ng/mL (0.00-4.00); THYROID STIMULATING HORMONE 1.23 uIU/mL (0.358-3.74)
[2021-01-04 11:17] LABS: ALBUMIN 3.7 g/dL (3.4-5.0); BILIRUBIN,TOTAL 0.9 mg/dL (0.2-1.0); CALCIUM, SERUM 8.7 mg/dL (8.5-10.1); CREATININE 1.2 mg/dL (0.6-1.3); TOTAL PROTEIN, SERUM 7.6 g/dL (6.4-8.2)
[2021-01-04 11:41] LABS: POTASSIUM 3.1 mmol/L (3.5-5.1)
== END 2021-01-04 23:59 | disposition home or self-care (01) ==
LOC: LAB 09:07
PROVIDERS: ATTEND Family Medicine
DX: I10 Essential (primary) hypertension (principal); N40.1 Benign prostatic hyperplasia with lower urinary tract symptoms; Z00.01 Encounter for general adult medical examination with abnormal findings; Z68.34 Body mass index [BMI] 34.0-34.9, adult; Z79.899 Other long term (current) drug therapy
CPT/HCPCS: 36415; 80053-TC; 80061-TC; 82306; 84153-TC; 84439-TC; 84443-TC; 85025-TC; 86803

== ENCOUNTER 2021-07-05 09:36 | Outpatient (CLI) | payer BC ==
[2021-07-05 10:39] LABS: BASOPHILS % (AUTO) 0.5 % (0.0-2.0); EOSINOPHILS % (AUTO) 1.4 % (0.0-6.0); HEMATOCRIT 43 % (39-51); HEMOGLOBIN 14.4 g/dL (13.5-17.5); LYMPHOCYTES # (AUTO) 1.8 K/uL (0.8-4.8); LYMPHOCYTES % (AUTO) 29.1 % (20.0-44.0); MEAN CORPUSCULAR HGB CONC 34 g/dl (31.0-36.0); MEAN CORPUSCULAR VOLUME 87 fL (80-96); MONOCYTES # (AUTO) 0.5 K/uL (0.1-1.30); MONOCYTES % (AUTO) 8.9 % (2.0-12.0); NEUTROPHILS # (AUTO) 3.7 K/uL (1.8-8.9); NEUTROPHILS % (AUTO) 60.1 % (43.0-81.0); PLATELET COUNT (AUTO) 252 K/uL (150-450); RED BLOOD CELL COUNT(AUTO) 4.95 MIL/uL (4.5-6.0); WHITE BLOOD COUNT (AUTO) 6.2 K/uL (4.3-11.0)
[2021-07-05 11:37] LABS: ALBUMIN 3.8 g/dL (3.4-5.0); BILIRUBIN,TOTAL 1.1 mg/dL (0.2-1.0); CALCIUM, SERUM 8.8 mg/dL (8.5-10.1); CREATININE 1.1 mg/dL (0.6-1.3); POTASSIUM 4.1 mmol/L (3.5-5.1)
[2021-07-05 11:49] LABS: PROSTATE SPECIFIC ANTIGEN SCR 1.4 ng/mL (0.00-4.00); THYROID STIMULATING HORMONE 1.729 uIU/mL (0.358-3.74)
== END 2021-07-05 23:59 | disposition home or self-care (01) ==
LOC: LAB 09:36
PROVIDERS: ATTEND Family Medicine
DX: I10 Essential (primary) hypertension (principal); E78.2 Mixed hyperlipidemia
CPT/HCPCS: 36415; 80053-TC; 80061-TC; 82306; 84153-TC; 84439-TC; 84443-TC; 85025-TC

== ENCOUNTER 2021-08-25 08:21 | Outpatient (CLI) | payer BC ==
[2021-08-25 09:17] LABS: CREATININE 1.1 mg/dL (0.6-1.3)
== END 2021-08-25 23:59 | disposition home or self-care (01) ==
LOC: LAB 08:21
PROVIDERS: ATTEND Family Medicine
DX: H47.099 Other disorders of optic nerve, not elsewhere classified, unspecified eye (principal)
CPT/HCPCS: 36415; 82565-TC; 84520-TC

== ENCOUNTER 2021-09-09 10:49 | Outpatient (CLI) | payer BC ==
[2021-09-09] MEDS ORDERED: GADOTERATE MEGLUMINE 10 MMOL/20 ML VIAL IV ONE (10:50)
== END 2021-09-09 23:59 | disposition home or self-care (01) ==
LOC: MRI 10:49
PROVIDERS: ATTEND Family Medicine
DX: I67.82 Cerebral ischemia (principal); J32.2 Chronic ethmoidal sinusitis; H47.099 Other disorders of optic nerve, not elsewhere classified, unspecified eye
CPT/HCPCS: 70542; 70553; A9575

== ENCOUNTER 2021-09-30 11:20 | Outpatient (CLI) | payer BC ==
[2021-09-30 12:08] LABS: BASOPHILS # (AUTO) 0.1 K/uL (0.0-0.2); HEMATOCRIT 43 % (39-51); HEMOGLOBIN 14.6 g/dL (13.5-17.5); LYMPHOCYTES # (AUTO) 2.6 K/uL (0.8-4.8); LYMPHOCYTES % (AUTO) 30.2 % (20.0-44.0); MEAN CORPUSCULAR HGB CONC 34 g/dl (31.0-36.0); MEAN CORPUSCULAR VOLUME 88 fL (80-96); MONOCYTES # (AUTO) 0.9 K/uL (0.1-1.30); MONOCYTES % (AUTO) 10.1 % (2.0-12.0); NEUTROPHILS # (AUTO) 4.8 K/uL (1.8-8.9); NEUTROPHILS % (AUTO) 56.7 % (43.0-81.0); PLATELET COUNT (AUTO) 270 K/uL (150-450); RED BLOOD CELL COUNT(AUTO) 4.95 MIL/uL (4.5-6.0); WHITE BLOOD COUNT (AUTO) 8.4 K/uL (4.3-11.0)
[2021-09-30 12:10] LABS: BILIRUBIN,URINE NEGATIVE (NEGATIVE); COLOR,URINE YELLOW (YELLOW); LEUKOCYTE ESTERASE ,URINE SMALL (NEGATIVE); NITRITE, URINE NEGATIVE (NEGATIVE); PROTEIN,URINE NEGATIVE (NEGATIVE); UGLUCOSE NEGATIVE (NEGATIVE); UROBILINOGEN,URINE 0.2 EU/dL (0.2)
[2021-09-30 12:26] LABS: RBC,URINE NONE SEEN /HPF (0-2)
[2021-09-30 12:27] LABS: BACTERIA,URINE Moderate /HPF (None Seen); SQUAMOUS EPITHELIAL CELL,UR Few /HPF (None Seen)
[2021-09-30 12:43] LABS: CALCIUM, SERUM 9.2 mg/dL (8.5-10.1); POTASSIUM 3.5 mmol/L (3.5-5.1)
== END 2021-09-30 23:59 | disposition home or self-care (01) ==
LOC: RAD 11:20
PROVIDERS: ATTEND Family Medicine
DX: Z01.818 Encounter for other preprocedural examination (principal); Z51.81 Encounter for therapeutic drug level monitoring
CPT/HCPCS: 36415; 71045-TC; 80048-TC; 81001; 85025-TC; 85730-TC; 87086-TC

== ENCOUNTER → 2022-02-03 | Outpatient (CLI) | payer BC ==
[2022-02-03 11:59] LABS: ALBUMIN 3.7 g/dL (3.4-5.0); BILIRUBIN,TOTAL 0.7 mg/dL (0.2-1.0); CALCIUM, SERUM 8.5 mg/dL (8.5-10.1); MAGNESIUM 2.3 mg/dL (1.8-2.4); POTASSIUM 3.5 mmol/L (3.5-5.1); TOTAL PROTEIN, SERUM 7.3 g/dL (6.4-8.2)
[2022-02-03 12:07] LABS: BASOPHILS % (AUTO) 0.6 % (0.0-2.0); EOSINOPHILS % (AUTO) 1.3 % (0.0-6.0); HEMATOCRIT 45 % (39-51); HEMOGLOBIN 14.7 g/dL (13.5-17.5); LYMPHOCYTES # (AUTO) 2.4 K/uL (0.8-4.8); MEAN CORPUSCULAR HGB CONC 33 g/dl (31.0-36.0); MEAN CORPUSCULAR VOLUME 84 fL (80-96); MONOCYTES # (AUTO) 0.8 K/uL (0.1-1.30); MONOCYTES % (AUTO) 9.5 % (2.0-12.0); NEUTROPHILS # (AUTO) 4.6 K/uL (1.8-8.9); NEUTROPHILS % (AUTO) 58.6 % (43.0-81.0); PLATELET COUNT (AUTO) 264 K/uL (150-450); RED BLOOD CELL COUNT(AUTO) 5.41 MIL/uL (4.5-6.0); THYROID STIMULATING HORMONE 2.586 uIU/mL (0.358-3.74); WHITE BLOOD COUNT (AUTO) 7.9 K/uL (4.3-11.0)
== END | disposition home or self-care (01) ==
LOC: LAB 10:55
PROVIDERS: ATTEND Internal Medicine Interventional Cardiology
DX: E78.5 Hyperlipidemia, unspecified (principal); E61.2 Magnesium deficiency; R94.6 Abnormal results of thyroid function studies
CPT/HCPCS: 36415; 80053-TC; 80061-TC; 83735-TC; 84439-TC; 84443-TC; 85025-TC

== ENCOUNTER 2022-03-16 09:05 | Outpatient (CLI) | payer BC | END 2022-03-16 23:59 | disposition home or self-care (01) | LOC: LAB 09:05 | PROVIDERS: ATTEND Urology | DX: N40.1 Benign prostatic hyperplasia with lower urinary tract symptoms (principal); N52.1 Erectile dysfunction due to diseases classified elsewhere | CPT/HCPCS: 36415; 84153-TC ==

== ENCOUNTER 2022-04-05 11:00 | Emergency (ER) | payer BC ==
[~2022-04-05] VITALS: Ht 172.7 cm; Wt 100.7 kg
--- NOTE | 2022-04-05 11:10 | NUR ---
.BIBWIFE C/O DIARRHEA AND VOMITING SINCE YESTERDAY, MID-ABD PAIN SINCE MORNING.VOMITING X4 THIS AM. PLACED COMFORTABLY IN BED. VITALS CHECKED
[2022-04-05] MEDS ORDERED: ONDANSETRON HCL/PF 4 MG/2 ML VIAL ONE (11:54)
[2022-04-05] MEDS ORDERED: ONDANSETRON HCL/PF 4 MG/2 ML VIAL IVP ONE (12:00)
[2022-04-05] MEDS ORDERED: IV NS 0.9% 1,000 ML BAG IV ONE (12:00)
--- NOTE | 2022-04-05 12:00 | NUR ---
IV CANNULA G18 INSERTED ON RIGHT AC. BLOOD DRAWN AND SENT TO LAB
[2022-04-05 12:07] LABS: BASOPHILS % (AUTO) 0.2 % (0.0-2.0); EOSINOPHILS % (AUTO) 0.1 % (0.0-6.0); HEMATOCRIT 49 % (39-51); HEMOGLOBIN 16.2 g/dL (13.5-17.5); LYMPHOCYTES # (AUTO) 0.6 K/uL (0.8-4.8); MEAN CORPUSCULAR HGB CONC 33 g/dl (31.0-36.0); MEAN CORPUSCULAR VOLUME 84 fL (80-96); MONOCYTES # (AUTO) 0.9 K/uL (0.1-1.30); MONOCYTES % (AUTO) 7.1 % (2.0-12.0); NEUTROPHILS # (AUTO) 11.1 K/uL (1.8-8.9); NEUTROPHILS % (AUTO) 87.6 % (43.0-81.0); PLATELET COUNT (AUTO) 334 K/uL (150-450); RED BLOOD CELL COUNT(AUTO) 5.87 MIL/uL (4.5-6.0); WHITE BLOOD COUNT (AUTO) 12.7 K/uL (4.3-11.0)
[2022-04-05 12:32] LABS: ALBUMIN 4.6 g/dL (3.4-5.0); BILIRUBIN,DIRECT 0.2 mg/dL (0.0-0.2); BILIRUBIN,TOTAL 1.1 mg/dL (0.2-1.0); POTASSIUM 4.2 mmol/L (3.5-5.1); TOTAL PROTEIN, SERUM 9.2 g/dL (6.4-8.2)
[2022-04-05 12:50] LABS: CALCIUM, SERUM 9.8 mg/dL (8.5-10.1); CREATININE 1.4 mg/dL (0.6-1.3)
--- NOTE | 2022-04-05 13:19 | NUR ---
URINE SPECIMEN SENT TO LAB
[2022-04-05] MEDS ORDERED: ONDA4TAB5 PO (13:33)
--- NOTE | 2022-04-05 13:55 | NUR ---
IV CANNULA REMOVED.
--- NOTE | 2022-04-05 13:55 | NUR ---
Patient discharged to home in stable condition. Written and verbal after care instructions given. Patient verbalizes understanding of instruction.
[2022-04-05 13:57] VITALS: BP 158/56
== END 2022-04-05 13:58 | disposition home or self-care (01) ==
LOC: ER 11:06
DX: K52.9 Noninfective gastroenteritis and colitis, unspecified (principal); R74.8 Abnormal levels of other serum enzymes; I10 Essential (primary) hypertension; Z98.890 Other specified postprocedural states; Z79.899 Other long term (current) drug therapy
CPT/HCPCS: 36415; 80048; 80076; 83690; 85025; 96374; 99283; J2405; J7030

== ENCOUNTER 2023-01-08 07:37 | Outpatient (CLI) | payer BC ==
[~2023-01-08 07:37] MED LIST changes: +ONDA4TAB5 PO
== END 2023-01-08 23:59 | disposition home or self-care (01) ==
LOC: LAB 07:37
PROVIDERS: ATTEND Internal Medicine Gastroenterology
DX: Z01.812 Encounter for preprocedural laboratory examination (principal); Z20.822 Contact with and (suspected) exposure to COVID-19
CPT/HCPCS: U0003; C9803

== ENCOUNTER 2023-01-15 07:23 | Day surgery (SDC) | payer BC ==
[2023-01-15 08:52] LABS: BASOPHILS % (AUTO) 0.5 % (0.0-2.0); EOSINOPHILS % (AUTO) 1.5 % (0.0-6.0); HEMATOCRIT 42 % (39-51); HEMOGLOBIN 13.9 g/dL (13.5-17.5); LYMPHOCYTES # (AUTO) 1.8 K/uL (0.8-4.8); MEAN CORPUSCULAR HGB CONC 33 g/dl (31.0-36.0); MEAN CORPUSCULAR VOLUME 86 fL (80-96); MONOCYTES # (AUTO) 0.7 K/uL (0.1-1.30); MONOCYTES % (AUTO) 8.7 % (2.0-12.0); NEUTROPHILS # (AUTO) 5.1 K/uL (1.8-8.9); NEUTROPHILS % (AUTO) 66.3 % (43.0-81.0); PLATELET COUNT (AUTO) 242 K/uL (150-450); RED BLOOD CELL COUNT(AUTO) 4.95 MIL/uL (4.5-6.0); WHITE BLOOD COUNT (AUTO) 7.6 K/uL (4.3-11.0)
[2023-01-15 09:02] LABS: CALCIUM, SERUM 8.4 mg/dL (8.5-10.1); CREATININE 0.9 mg/dL (0.6-1.3); POTASSIUM 3.7 mmol/L (3.5-5.1)
[2023-01-15 09:09] LABS: ALBUMIN 3.5 g/dL (3.4-5.0); BILIRUBIN,TOTAL 1.4 mg/dL (0.2-1.0); TOTAL PROTEIN, SERUM 6.8 g/dL (6.4-8.2)
== END 2023-01-15 11:35 | disposition home or self-care (01) ==
LOC: DS 07:23
PROVIDERS: ATTEND Internal Medicine Gastroenterology
DX: Z12.11 Encounter for screening for malignant neoplasm of colon (principal); K21.9 Gastro-esophageal reflux disease without esophagitis; K44.9 Diaphragmatic hernia without obstruction or gangrene; K29.70 Gastritis, unspecified, without bleeding; K64.8 Other hemorrhoids; D12.2 Benign neoplasm of ascending colon; I10 Essential (primary) hypertension; E66.9 Obesity, unspecified; G47.33 Obstructive sleep apnea (adult) (pediatric); Z98.890 Other specified postprocedural states; Z79.899 Other long term (current) drug therapy
CPT/HCPCS: 45385; 43239; 71045; 88342; 85025; 85610; 85730; 36415; 80053; 88313; 88305; 93005; J2704; J3490

== ENCOUNTER 2023-04-11 07:15 | Outpatient (CLI) | payer BC ==
[2023-04-11 09:04] LABS: PROSTATE SPECIFIC ANTIGEN SCR 0.56 ng/mL (0.00-4.00)
== END 2023-04-11 23:59 | disposition home or self-care (01) ==
LOC: LAB 07:15
PROVIDERS: ATTEND Urology
DX: N40.1 Benign prostatic hyperplasia with lower urinary tract symptoms (principal); N52.1 Erectile dysfunction due to diseases classified elsewhere
CPT/HCPCS: 36415; 84153-TC; 84154-TC